=== PATIENT | male | born 1970 ===

== ENCOUNTER → 2024-04-02 | Outpatient (CLI) | payer OTHER | END | disposition home or self-care (01) | LOC: Rad HDHVI 08:01 | PROVIDERS: ATTEND Internal Medicine Cardiovascular Disease | DX: I10 Essential (primary) hypertension (principal); R00.2 Palpitations | CPT/HCPCS: 93306 ==

== ENCOUNTER → 2024-05-14 | Outpatient (CLI) | payer OTHER ==
--- NOTE | 2024-05-14 14:48 | DVH ---
CLINICAL INDICATION: PAIN TECHNIQUE: XY R KNEE 3V XRAY Comparison: None FINDINGS/IMPRESSION: There is no evidence of acute fracture or dislocation. The visualized joint space is well maintained. The alignment is anatomical. There is no radiopaque foreign body.
== END | disposition home or self-care (01) ==
LOC: Rad HDHVI 12:48
PROVIDERS: ATTEND Internal Medicine Cardiovascular Disease
DX: M25.561 Pain in right knee (principal)
CPT/HCPCS: 73562